=== PATIENT | male | born 1995 | race Caucasian/White ===

== ENCOUNTER 2020-01-19 17:04 | Emergency (ER) | payer MEDICAID ==
[~2020-01-19] VITALS: Ht 172.7 cm; Wt 87.5 kg
[2020-01-19 17:10] VITALS: Ht 172.7 cm; Wt 87.5 kg
[2020-01-19 17:28] VITALS: BP 139/78
== END 2020-01-19 17:28 | disposition home or self-care (01) ==
LOC: ED 17:04
DX: R21 Rash and other nonspecific skin eruption (principal)